=== PATIENT | female | born 1955 | race Caucasian/White ===

== ENCOUNTER → 2016-11-21 | Outpatient (CLI) | payer OTHER ==
[2016-11-21 14:06] LABS: HEMOGLOBIN 11.5 gm/dl (12.3-15.3); RED BLOOD COUNT 3.99 M/UL (4.00-5.10); WHITE BLOOD COUNT 9.8 K/UL (4.5-11.0)
[2016-11-21 14:43] LABS: BUN/CREATININE RATIO 32 (0-10)
== END ==
LOC: LAB 13:01
PROVIDERS: Physician Assistant
DX: D64.9 Anemia, unspecified (principal); E78.5 Hyperlipidemia, unspecified; I10 Essential (primary) hypertension; E55.9 Vitamin D deficiency, unspecified; E88.81 Metabolic syndrome and other insulin resistance
CPT/HCPCS: 36415; 80053; 80061; 85025

== ENCOUNTER → 2017-02-25 | Outpatient (CLI) | payer OTHER | LOC: EXRD 13:12 | DX: M25.562 Pain in left knee (principal) | CPT/HCPCS: 73560 ==